=== PATIENT | male | born 1980 | race Caucasian/White ===

== ENCOUNTER 2017-02-07 18:16 | Emergency (ER) | payer MEDICAID ==
--- NOTE | 2017-02-07 18:56 | C.PDOC ---
History Of Present Illness 36 year old male presents to the ED with complaints of intermittent left lower back pain for one week. Pain is a spasm that is nonradiating and is worse with certain movements. Patient denies dysuria, changes in bowel movement, fever, hematuria, nausea, or vomiting. Time Seen by Provider: 02/07/17 18:36 Chief Complaint (Nursing): Male Genitourinary History Per: Patient History/Exam Limitations: no limitations Onset/Duration Of Symptoms: Days (1 week), Intermittent Episodes Current Symptoms Are (Timing): Still Present Quality Of Discomfort: "Pain" Associated Symptoms: denies: Fever, Chills, Nausea, Vomiting, Diarrhea Recent travel outside of the [place]: No Past Medical History Reviewed: Historical Data, Nursing Documentation, Vital Signs Vital Signs: Last Vital Signs Temp 99.1 F 02/07/17 18:19 Pulse 98 H 02/07/17 18:19 Resp 20 02/07/17 18:19 BP 130/88 02/07/17 18:19 Pulse Ox 97 02/07/17 20:35 - Medical History PMH: Seizures (epilepsy) - [facility] Procedures OTHER SKIN & SUBQ I D (06/19/14) Family History: States: Unknown Family Hx - Social History Hx Tobacco Use: Yes Hx Alcohol Use: Yes Hx Substance Use: No - Immunization History Hx Tetanus Toxoid Vaccination: Yes Hx Influenza Vaccination: No Hx Pneumococcal Vaccination: No Review Of Systems Constitutional: Negative for: Fever, Chills Cardiovascular: Negative for: Chest Pain, Palpitations Respiratory: Negative for: Cough, Shortness of Breath Gastrointestinal: Negative for: Nausea, Vomiting, Abdominal Pain, Diarrhea Musculoskeletal: Positive for: Back Pain (left lower back pain ) Neurological: Negative for: Weakness, Numbness Physical Exam - Physical Exam Appears: Non-toxic, No Acute Distress Skin: Warm, Dry Head: Atraumatic Eye(s): bilateral: Normal Inspection, EOMI Oral Mucosa: Moist Neck: Supple Chest: Symmetrical, No Deformity Cardiovascular: Rhythm Regular Respiratory: Normal Breath Sounds, No Rhonchi, No Wheezing Gastrointestinal/Abdominal: Soft, No Tenderness, No Distention, No Guarding, No Rebound Back: No Vertebral Tenderness, Muscle Spasm, Other (left lumbar muscular tenderness ) Extremity: Normal ROM, No Tenderness, Capillary Refill (good capillary refill, less than 2 seconds ) Neurological/Psych: Oriented x3, Normal Speech, Normal Cognition ED Course And Treatment - Laboratory Results Lab Interpretation: Normal O2 Sat by Pulse Oximetry: 97 Pulse Ox Interpretation: Normal - CT Scan/US CT Abd/Pel w/o Other Rad Studies (CT/US): Interpreted By Me, Read By Radiologist CT/US Interpretation: EXAM: CT Abdomen and Pelvis Without Intravenous Contrast. EXAM DATE/TIME: 02/07/2017 6:55 PM. CLINICAL HISTORY: 36 years old , male; Pain; Abdominal pain; Flank; Left lower quadrant (llq); Additional info : Left flank. pain. TECHNIQUE: Axial computed tomography images of the abdomen and pelvis without intravenous contrast. All CT. scans at this facility use one or more dose reduction techniques, viz.: automated exposure control;. ma/kV adjustment per patient size (including targeted exams where dose is matched to indication; i.e. head); or iterative reconstruction technique. Coronal and sagittal reformatted images were created and reviewed. COMPARISON: There are no prior studies for comparison. FINDINGS: Lower thorax : Heart size is normal. There is minimal atelectasis and scarring at the lung bases. There is a small cyst in the left lower lobe. There is minimal pleural thickening. ABDOMEN: Liver: unremarkable. Gallbladder and bile ducts: unremarkable. Pancreas: unremarkable. Spleen: unremarkable. Adrenals: unremarkable. Kidneys and ureters: There is a nonobstructing left lower pole renal stone, 6.8 x 3 mm.. There is a. right renal cyst.Kidneys and ureters are otherwise unremarkable. Stomach and bowel: Stomach is partially distended. Rotation is normal. There is no obstruction. Ileocecal region is unremarkable. Appendix and terminal ileum are unremarkable. Colon is. incompletely distended which limits evaluation. There is scattered diverticulosis. Appendix: See stomach and bowel. PELVIS: Bladder: Bladder is incompletely distended. There is mild bladder wall thickening. A urachal remnant. is present. Reproductive: Seminal vesicles and prostate are unremarkable. ABDOMEN and PELVIS: Intraperitoneal space: There is no free air or free fluid. Bones/joints: .There are degenerative changes in the osseus structures. Soft tissues: There is a small fat containing umbilical hernia. Vasculature: There are phleboliths. Vascular structures are unremarkable. Lymph nodes: There is no pathologic adenopathy. IMPRESSION: 6.8 x 3 mm nonobstructing left renal stone, no ureteral stones or hydronephrosis; no. CT findings of appendicitis or diverticulitis; mild bladder wall thickening, underdistention versus. inflammation Reevaluation Time: 20:40 Reassessment Condition: Improved (Patient remains comfortable withut any pain in the ED.) Disposition Counseled Patient/Family Regarding: Studies Performed, Diagnosis, Need For Followup, Rx Given - Disposition Referrals: Brigido Garcia MD [Medical Doctor] - Disposition: HOME/ ROUTINE Disposition Time: 20:41 Condition: STABLE Prescriptions: Cyclobenzaprine [Cyclobenzaprine HCl] 10 mg PO TID PRN #14 tab PRN Reason: Muscle Spasm Naproxen [Naprosyn] 1 tab PO BID PRN #25 tab PRN Reason: Pain Instructions: Muscle Spasm (ED) Forms: [facility] (Kazakh) - Clinical Impression Clinical Impression: Lumbar paraspinal muscle spasm - Scribe Statement The provider has reviewed the documentation as recorded by the Scribe Erinn Montes All medical record entries made by the Scribe were at my direction and personally dictated by me. I have reviewed the chart and agree that the record accurately reflects my personal performance of the history, physical exam, medical decision making, and the department course for this patient. I have also personally directed, reviewed, and agree with the discharge instructions and disposition.
[2017-02-07 19:02] LABS: RBC URINE 1 /hpf (0-3); URINE BILIRUBIN NEGATIVE (NEGATIVE); URINE BLOOD NEGATIVE (NEGATIVE); URINE COLOR Yellow (YELLOW); URINE GLUCOSE (UA) NORMAL (Normal); URINE KETONE NEGATIVE (NEGATIVE); URINE LEUKOCYTE ESTERASE NEG Leu/uL (Negative); URINE PROTEIN NEGATIVE (NEGATIVE); URINE UROBILINOGEN NORMAL mg/dL (0.2-1.0); WBC URINE < 1 /hpf (0-5)
--- NOTE | 2017-02-07 20:29 | CT ---
EXAM: CT Abdomen and Pelvis Without Intravenous Contrast EXAM DATE/TIME: 02/07/2017 6:55 PM CLINICAL HISTORY: 36 years old, male; Pain; Abdominal pain; Flank; Left lower quadrant (llq); Additional info: Left flank pain TECHNIQUE: Axial computed tomography images of the abdomen and pelvis without intravenous contrast. All CT scans at this facility use one or more dose reduction techniques, viz.: automated exposure control; ma/kV adjustment per patient size (including targeted exams where dose is matched to indication; i.e. head); or iterative reconstruction technique. Coronal and sagittal reformatted images were created and reviewed. COMPARISON: There are no prior studies for comparison. FINDINGS: Lower thorax: Heart size is normal. There is minimal atelectasis and scarring at the lung bases. There is a small cyst in the left lower lobe. There is minimal pleural thickening. ABDOMEN: Liver: unremarkable Gallbladder and bile ducts: unremarkable Pancreas: unremarkable Spleen: unremarkable Adrenals: unremarkable Kidneys and ureters: There is a nonobstructing left lower pole renal stone, 6.8 x 3 mm.. There is a right renal cyst.Kidneys and ureters are otherwise unremarkable. Stomach and bowel: Stomach is partially distended. Rotation is normal. There is no obstruction. Ileocecal region is unremarkable. Appendix and terminal ileum are unremarkable. Colon is incompletely distended which limits evaluation. There is scattered diverticulosis. Appendix: See stomach and bowel PELVIS: Bladder: Bladder is incompletely distended. There is mild bladder wall thickening. A urachal remnant is present. Reproductive: Seminal vesicles and prostate are unremarkable. ABDOMEN and PELVIS: Intraperitoneal space: There is no free air or free fluid. Bones/joints: .There are degenerative changes in the osseus structures. Soft tissues: There is a small fat containing umbilical hernia. Vasculature: There are phleboliths. Vascular structures are unremarkable. Lymph nodes: There is no pathologic adenopathy. IMPRESSION: 6.8 x 3 mm nonobstructing left renal stone, no ureteral stones or hydronephrosis; no CT findings of appendicitis or diverticulitis; mild bladder wall thickening, underdistention versus inflammation Additional findings as described above.
[2017-02-07 20:45] VITALS: BP 127/89; PULSE 90; RESP 18; TEMP 98.4; O2SAT 96
== END 2017-02-07 20:48 | disposition home or self-care (01) ==
LOC: C.ER 18:16
DX: M62.830 Muscle spasm of back (principal)

== ENCOUNTER 2018-04-23 18:12 | Emergency (ER) | payer MEDICAID ==
--- NOTE | 2018-04-23 19:24 | C.PDOC ---
History Of Present Illness 37 year old male with PMHx of seizure presents to the ED c/o 1-2 episodes of left sided chest pain for the past 1 week. Patient states his pain in non radiating not associated with nausea, diaphoresis. Patient reports chest pain does not last for long time, also states having SOB that is not related with is chest pain. Patient states he is currently taking topamax. Patient denies nausea, vomit, syncope, headache, cough, fever, congestion, FMHx of cardiac disease, [place], recent travel, recent hospitalization. Patient currently denies any chest discomfort while in the ED. Time Seen by Provider: 04/23/18 18:53 Chief Complaint (Nursing): Chest Pain History Per: Patient History/Exam Limitations: no limitations Onset/Duration Of Symptoms: Days (week) Current Symptoms Are (Timing): Still Present Quality: "Pain" Associated Symptoms: denies: Nausea, Dyspnea, Diaphoresis Recent travel outside of the [place]: No Additional History Per: Patient Past Medical History Reviewed: Historical Data, Nursing Documentation, Vital Signs Vital Signs: Last Vital Signs Temp 98.8 F 04/23/18 18:21 Pulse 91 H 04/23/18 18:21 Resp 18 04/23/18 18:21 BP 135/89 04/23/18 18:21 Pulse Ox 95 04/23/18 18:21 - Medical History PMH: Seizures Surgical History: No Surg Hx - [facility] Procedures OTHER SKIN & SUBQ I D (06/19/14) Family History: States: Unknown Family Hx Denies: [place], CAD - Social History Hx Tobacco Use: Yes Hx Alcohol Use: Yes Hx Substance Use: No - Immunization History Hx Tetanus Toxoid Vaccination: No Hx Influenza Vaccination: No Hx Pneumococcal Vaccination: No Review Of Systems Constitutional: Negative for: Fever, Chills ENT: Negative for: Nose Congestion Cardiovascular: Positive for: Chest Pain. Negative for: Palpitations Respiratory: Negative for: Cough, Shortness of Breath Gastrointestinal: Negative for: Nausea, Vomiting Neurological: Negative for: Weakness, Numbness, Headache, Dizziness Physical Exam - Physical Exam Appears: Non-toxic, No Acute Distress Skin: Normal Color, Warm, Dry Head: Atraumatic, Normacephalic Eye(s): bilateral: Normal Inspection, PERRL, EOMI Oral Mucosa: Moist Neck: Normal ROM, Supple Chest: Symmetrical, No Tenderness Cardiovascular: Rhythm Regular Respiratory: Normal Breath Sounds, No Rales, No Rhonchi, No Wheezing Gastrointestinal/Abdominal: Soft, No Tenderness, No Guarding, No Rebound Extremity: Normal ROM, No Tenderness, No Swelling Neurological/Psych: Oriented x3, Normal Speech, Normal Cognition Gait: Steady ED Course And Treatment - Laboratory Results Result Diagrams: 04/23/18 19:53 04/23/18 19:53 ECG: Interpreted By Me, Viewed By Me ECG Rhythm: Sinus Rhythm Interpretation Of ECG: normal axis, normal intervals, no ST elevations or depressions Rate From EC (bpm) O2 Sat by Pulse Oximetry: 95 (ON RA) Pulse Ox Interpretation: Normal Medical Decision Making Medical Decision Making: Plan: * EKG * Labs * CXR CXR shows no acute disease. Labs reviewed, and are unremarkable. HEART score: 0 Patient is stable for discharge home. Disposition Counseled Patient/Family Regarding: Studies Performed, Diagnosis, Need For Followup - Disposition Referrals: [facility] [Outside] Disposition: HOME/ ROUTINE Disposition Time: 21:15 Condition: GOOD Additional Instructions: RAPHAEL ADAMES, thank you for letting us take care of you today. Your provider was Lena Duran MD and you were treated for CHEST PAIN. The emergency medical care you received today was directed at your acute symptoms. If you were prescribed any medication, please fill it and take as directed. It may take several days for your symptoms to resolve. Return to the Emergency Department if your symptoms worsen, do not improve, or if you have any other problems. Please contact your doctor or call one of the physicians/clinics you have been referred to that are listed on the Patient Visit Information form that is included in your discharge packet. Bring any paperwork you were given at discharge with you along with any medications you are taking to your follow up visit. Our treatment cannot replace ongoing medical care by a primary care provider outside of the emergency department. Thank you for allowing the [facility] team to be part of your care today. If you had an X-Ray or CT scan: A Radiologist will review the ED reading if any change in treatment is needed we will contact you. Instructions: Chest Pain That Is Not Caused by the Heart (DC), Chest Pain (DC) Forms: [employer] (Swedish), General Discharge Instructions - POA Present On Arrival: None - Clinical Impression Clinical Impression: Chest pain - Scribe Statement The provider has reviewed the documentation as recorded by the Scribe Mat Benavides All medical record entries made by the Scribe were at my direction and personally dictated by me. I have reviewed the chart and agree that the record accurately reflects my personal performance of the history, physical exam, medical decision making, and the department course for this patient. I have also personally directed, reviewed, and agree with the discharge instructions and disposition.
[2018-04-23 20:01] LABS: BASO # 0.1 K/uL (0.0-0.2); BASO % 0.9 % (0.0-2.0); EOS # 0.2 K/uL (0.0-0.7); EOS % 2.3 % (0.0-4.0); HEMOGLOBIN 16.3 g/dL (12.0-18.0); LYMPH # 1.8 K/uL (1.0-4.3); LYMPH % 23.5 % (20.0-40.0); MEAN CELL VOLUME 96.4 fL (80.0-94.0); MEAN CORPUSCULAR HEMOGLOBIN 32.3 pg (27.0-31.0); MEAN CORPUSCULAR HGB CONC 33.5 g/dL (33.0-37.0); MEAN PLATELET VOLUME 8.4 fL (7.2-11.7); MONO # 0.6 K/uL (0.0-0.8); MONO % 7.5 % (0.0-10.0); NEUT # 5.1 K/uL (1.8-7.0); NEUT % 65.8 % (50.0-75.0); NRBC % 0.1 % (0.0-2.0); RBC 5.05 Mil/uL (4.40-5.90); RED CELL DISTRIBUTION WIDTH 13.1 % (11.5-14.5); WHITE BLOOD COUNT 7.8 K/uL (4.8-10.8)
[2018-04-23 20:11] LABS: ALB/GLOB RATIO 1.5 (1.0-2.1); ALBUMIN 4.2 g/dL (3.5-5.0); ALT/SGPT 43 U/L (21-72); AST/SGOT 31 U/L (17-59); BLOOD UREA NITROGEN 18 mg/dL (9-20); CALCIUM 9.1 mg/dl (8.6-10.4); GFR NON-AFRICAN AMERICAN > 60
[2018-04-23 20:31] VITALS: BP 118/74; PULSE 76; RESP 16; TEMP 98.1
[2018-04-23 21:01] VITALS: O2SAT 95
--- NOTE | 2018-04-24 09:53 | RAD ---
Date of service: 04/23/2018 HISTORY: chest pain COMPARISON: Chest radiographs 05/14/2016. TECHNIQUE: Chest PA and lateral FINDINGS: LUNGS: No active pulmonary disease. PLEURA: No significant pleural effusion identified. No pneumothorax apparent. CARDIOVASCULAR: No aortic atherosclerotic calcification present. Normal cardiac size. No pulmonary vascular congestion. OSSEOUS STRUCTURES: No significant abnormalities. VISUALIZED UPPER ABDOMEN: Normal. OTHER FINDINGS: None. IMPRESSION: No interval acute cardiopulmonary disease appreciated.
--- NOTE | 2018-04-26 23:58 | CARD ---
APPROVED REPORT Date of service: 04/23/2018 EKG Measurement Heart [id number] <Conclusion> Normal sinus rhythm Normal ECG
== END 2018-04-23 21:32 | disposition home or self-care (01) ==
LOC: C.ER 18:12
DX: R07.9 Chest pain, unspecified (principal)